=== PATIENT | male | born 1955 | race Caucasian/White ===

== ENCOUNTER 2020-01-15 14:21 | Emergency (ER) | payer BC ==
[~2020-01-15] VITALS: Ht 175.3 cm; Wt 95.2 kg
[~2020-01-15 14:21] MED LIST: DOXY100 PO
== END 2020-01-15 14:32 | disposition home or self-care (01) ==
LOC: ER 14:21
DX: Z02.89 Encounter for other administrative examinations (principal); Z71.1 Person with feared health complaint in whom no diagnosis is made
CPT/HCPCS: 99282

== ENCOUNTER → 2020-12-12 | Outpatient (CLI) | payer BC | END | disposition home or self-care (01) | LOC: LAB SHORT 07:58 | DX: C44.622 Squamous cell carcinoma of skin of right upper limb, including shoulder (principal); L30.8 Other specified dermatitis | CPT/HCPCS: 88305; 88312 ==

== ENCOUNTER → 2021-01-07 | Outpatient (CLI) | payer BC | LOC: LAB SHORT 12:28 → LAB 12:28 | DX: C44.622 Squamous cell carcinoma of skin of right upper limb, including shoulder (principal) | CPT/HCPCS: 88305 ==

== ENCOUNTER → 2021-02-20 | Outpatient (CLI) | payer OTHER, MEDICARE | END | disposition home or self-care (01) | LOC: LAB SHORT 10:33 | DX: D48.5 Neoplasm of uncertain behavior of skin (principal) | CPT/HCPCS: 88305 ==